=== PATIENT | male | born 1960 | race Caucasian/White ===

== ENCOUNTER → 2022-01-12 | Outpatient (CLI) | payer MEDICAID ==
[2022-01-12 15:02] LABS: Basophils # (A) 0.08 X 10*3/uL (0.00-0.10); Basophils % (A) 1.4 %; Eosinophils # (A) 0.12 X 10*3/uL (0.04-0.35); Eosinophils % (A) 2.1 %; HCT 44.3 % (39.6-50.0); HGB 14.8 g/dL (13.0-17.0); Immature Grans, Automated 0.3 %; Lymphocytes # (A) 1.42 X 10*3/uL (0.90-5.00); Lymphocytes % (A) 24.6 %; MCH 30.1 pg (27.0-32.0); MCHC 33.4 g/dL (32.0-37.0); MCV 90.2 fL (80.0-97.0); Mean Platelet Volume 10.7 fL (9.5-12.2); Monocytes % (A) 10.4 %; NRBC Per 100 WBC 0 /100 WBCS (0.0-0.0); Neutrophils # (A) 3.54 X 10*3/uL (1.80-7.70); Neutrophils % (A) 61.2 %; Platelet Count 325 X 10*3/uL (140-440); RBC 4.91 X 10*6/uL (4.40-5.60); RDW 13.1 % (11.5-14.5); WBC 5.78 X 10*3/uL (4.50-10.00)
[2022-01-12 15:12] LABS: African American GFR (CKD) 84.1 (60.0-200.0); Anion Gap 9.4 mmol/L (10.00-18.00); BUN/Creat Ratio 14.91 Ratio (12.00-20.00); Blood Urea Nitrogen 16.4 mg/dL (9.0-27.0); Calcium 9.7 mg/dL (8.7-10.3); Carbon Dioxide 28.6 mmol/L (20.0-27.5); Non-African American GFR(CKD) 72.6 (60.0-200.0); Potassium 5.1 mmol/L (3.5-5.5)
== END | disposition home or self-care (01) ==
LOC: LABPAT 08:53
PROVIDERS: ATTEND Urology
DX: Z01.812 Encounter for preprocedural laboratory examination (principal); N40.1 Benign prostatic hyperplasia with lower urinary tract symptoms
CPT/HCPCS: 36415; 80048; 85025

== ENCOUNTER 2022-01-19 08:19 | Day surgery (SDC) | payer MEDICAID ==
[2022-01-18 10:39] VITALS: BMI 22.9
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
[~2022-01-19 08:19] MED LIST: DEXAMETHASONE SOD PHOSPHATE 4 MG/ML 1 ML VIAL IV ONE; HYDROmorphone 0.5 MG/0.5 ML SYRINGE IVP PRN; ONDANSETRON 4 MG/2 ML VIAL IVP ONE
[2022-01-19] MEDS: LACTATED RINGERS 1,000 ML IV SCH (08:52)
[2022-01-19] MEDS ORDERED: DEXAMETHASONE SOD PHOSPHATE 4 MG/ML 1 ML VIAL IVP ONE (09:17)
[2022-01-19] MEDS ORDERED: ONDANSETRON 4 MG/2 ML VIAL IVP ONE (09:17)
[2022-01-19] MEDS ORDERED: fentaNYL (PF) 50 MCG/ML 2 ML AMP ONE (11:01)
[2022-01-19] MEDS ORDERED: SUCCINYLCHOLINE CHLORIDE 200 MG/10 ML VIAL IV ONE (11:01)
[2022-01-19] MEDS ORDERED: MIDAZOLAM 2 MG/2 ML VIAL ONE (11:01)
[2022-01-19] MEDS ORDERED: LIDOCAINE 2% INJ 20 MG/ML (2 ML VIAL) ONE (11:01)
[2022-01-19] MEDS ORDERED: PROPOFOL 10 MG/ML 20 ML VIAL IV ONE (11:01)
[2022-01-19] MEDS ORDERED: ePHEDrine 50 MG/ML 1 ML VIAL ONE (11:01)
[2022-01-19] MEDS ORDERED: NEOSTIGMINE 1 MG/ML 10 ML VIAL ONE (11:01)
[2022-01-19] MEDS ORDERED: GLYCOPYRROLATE 0.2 MG/ML 2 ML VIAL ONE (11:01)
[2022-01-19] MEDS ORDERED: ROCURONIUM 10 MG/ML (5 ML VIAL) IV ONE (11:01)
[2022-01-19] MEDS ORDERED: LACTATED RINGERS 1,000 ML IV ONE ×2 (11:41)
[2022-01-19] MEDS ORDERED: BELLADONNA-OPIUM 16.2-60 MG 1 EACH SUPP RECTAL PRN (14:52)
--- NOTE | 2022-01-19 14:58 | P.OP ---
Date of Procedure: 01/19/22 Preoperative Diagnosis: BPH with obstruction Postoperative Diagnosis: Same Procedure(s) Performed: Cystoscopy, bipolar transurethral resection of prostate (TURP) Anesthesia: KAMI Surgeon: Oni Lei Estimated Blood Loss (ml): 400 IV fluids (ml): 400 Pathology: other (Prostate chips) Condition: stable Disposition: PACU Indications for Procedure: The patient is a 61-year-old white male diagnosed with a UTI and urinary retention in November 2020. 2 L of urine was drained from his bladder at that time. He underwent a Urolift procedure in January 2021 but continues to empty his bladder incompletely. In view of this, he self catheterizes at bedtime. His PSA level is 4.47. He underwent a prostate ultrasound with biopsies. The prostate volume is 49.3 mL, and biopsies were negative. It is presumed that his elevated PSA level is due to BPH. In view of his persistent incomplete bladder emptying he has elected to undergo a TURP. Operative Findings: Trilobar BPH. Multiple Urolift implants seen and removed. Description of Procedure: The patient was taken in the operating room and placed in the dorsolithotomy position. The external genitalia was prepped and draped sterilely. The 25- Turkish ACMI resectoscope sheath was introduced into the bladder. The bladder was inspected. Both ureteral orifices were of normal anatomic location and configuration, and clear urine effluxed from both. No tumors or foreign bodies were seen. Examination of the prostate revealed complete obstruction with a trilobar configuration. Using the bipolar cutting loop, the median lobe was resected. Next, each of the lateral lobes were resected down to the surgical capsule. The floor of the prostate was then resected, proximal to the verumontanum. Next, the remaining anterior tissue was resected. The residual apical tissue was then carefully resected, with care taken to avoid injury to the external urinary sphincter. The resection was carried down to the surgical capsule in all 4 quadrants. The prostatic fossa was then carefully examined, and any areas of bleeding were controlled with electrocautery. An area of bleeding was present anteriorly on the left side, within the distal prostatic fossa which may have been a venous sinus. It was not an arterial bleeder, but it could not be adequately controlled with electrocautery. The resectoscope was withdrawn into the bulbous urethra. The external urinary sphincter remained intact. The prostatic fossa was open. The Ellik evacuator was used to remove all prostate chips from the bladder. These were saved and sent for pathologic examination. The resectoscope was removed, and a 20 Turkish, 3-Way Garcia catheter was placed. The catheter was placed on gentle traction, and the return was essentially clear. Continuous bladder irrigation was started using 0.9 normal saline. The patient tolerated the procedure well was taken to the recovery room in stable condition.
[2022-01-19] MEDS: SODIUM CHLORIDE 0.9% IRRIG 3,000 ML BAG IRRIGATION SCH (15:06)
[2022-01-19] MEDS: DEXTROSE 5%-0.45% NACL 1,000 ML IV SCH (17:10)
[2022-01-19] MEDS: ACETAMINOPHEN TAB 325 MG TAB PO PRN ×2 (17:42→22:26)
[2022-01-19] MEDS ORDERED: KETOROLAC 15 MG/ML 1 ML VIAL IVP PRN (18:17)
[2022-01-19] MEDS: DOCUSATE 100 MG CAP PO SCH (20:10)
[2022-01-20] MEDS: SODIUM CHLORIDE 0.9% IRRIG 3,000 ML BAG IRRIGATION SCH (03:19)
[2022-01-20] MEDS: ACETAMINOPHEN TAB 325 MG TAB PO PRN ×2 (05:07→13:05)
[2022-01-20] MEDS: DOCUSATE 100 MG CAP PO SCH (09:31)
--- NOTE | 2022-01-20 10:12 | P.DS ---
Providers Expected date of discharge: 01/20/22 Attending physician: Oni Lei Primary care physician: Blanca Szymanski - Discharge Diagnosis(es) (1) Benign prostatic hyperplasia with lower urinary tract symptoms Status: Acute Hospital Course: The patient is a 61-year-old white male diagnosed with a UTI and urinary retention in November 2020. 2L of urine was drained from his bladder at that time. He underwent a Urolift procedure in January 2021 but continues to empty his bladder incompletely. In view of this, he self catheterizes at bedtime. His PSA level is 4.47. He underwent a prostate ultrasound with biopsies. The prostate volume is 49.3 mL, and biopsies were negative. It is presumed that his elevated PSA level is due to BPH. In view of his persistent incomplete bladder emptying he elected to undergo a Cystoscopy and TURP with Dr. Lei on 01/13/22. An area of bleeding was present anteriorly on the left side, within the distal prostatic fossa which may have been a venous sinus. It was not an arterial bleeder, but it could not be adequately controlled with electrocautery.a 20 [place], 3-Way Garcia catheter was placed. The catheter was placed on gentle traction, and the return was essentially clear. Continuous bladder irrigation was started using 0.9 normal saline. The patient tolerated the procedure well was taken to the recovery room in stable condition. POD#1 his urine was clear. CBI discontined. No evidence of ongoing bleeding was observed. He states his pain is well controlled. His vitals are stable, he is afebrile and he is on room air. He has eaten breakfast and denies any nausea or vomiting. He has been up and ambulating. He was discharged home with his Garcia catheter and will follow up with Dr. Lei in the office on Sunday01/23/22. Impression and plan of care have been directed as dictated by the signing physician. Laurie Curtis nurse practitioner acting as scribe for signing physician. Laurie Curtis [facility] Palliative Care/Urology [place] [id number] Email: [email or web address] I have personally seen and examined the patient, reviewed the documentation and agree with the assessment and plan as written. Oni Lei MD Patient Condition at Discharge: Good Plan - Discharge Summary Discharge Rx Participant: No New Discharge Prescriptions: Continue Multivitamins, Thera [Multivitamin (formulary)] 1 tab PO DAILY Cholecalciferol (Vitamin D3) [Vitamin D3 (500 Iu/5 ML)] 12.5 mcg PO DAILY Ascorbic Acid [Vitamin C] 500 mg PO DAILY Discharge Medication List Ascorbic Acid [Vitamin C] 500 mg PO DAILY 01/18/22 [History] Cholecalciferol (Vitamin D3) [Vitamin D3 (500 Iu/5 ML)] 12.5 mcg PO DAILY 01/18/22 [History] Multivitamins, Thera [Multivitamin (formulary)] 1 tab PO DAILY 01/18/22 [History] Follow up Appointment(s)/Referral(s): Oni Lei MD [STAFF PHYSICIAN] - 01/23/22 8:40 am Patient Instructions/Handouts: Urinary Leg Bag (GEN), How to Change a Catheter Drainage Bag (DC) Activity/Diet/Wound Care/Special Instructions: - No heavy lifting, straining, or strenuous activity - May take an [id number] stool softener, such as Colace, to prevent con stipation and straining with bowel movements - Take Tylenol as needed for pain/discomfort - You may shower, no tub baths - It is normal to have blood in your urine - Increase your fluid intake - Follow up with Dr. Lei in the office on Tuesday 01/23 at 8:40 AM for Garcia catheter removal Discharge Disposition: HOME SELF-CARE
[2022-01-20] MEDS: DEXTROSE 5%-0.45% NACL 1,000 ML IV SCH (13:08)
[2022-01-20] MEDS: LACTATED RINGERS 1,000 ML IV SCH (13:09)
[2022-01-20 13:39] VITALS: BP 114/68; PULSE 66; RESP 18; TEMP 97.8
== END 2022-01-20 15:09 | disposition home or self-care (01) ==
LOC: OR 08:19 → 4SSUR 14:23 → OR 01-20 15:09
PROVIDERS: ATTEND Urology
DX: N40.1 Benign prostatic hyperplasia with lower urinary tract symptoms (principal); N13.8 Other obstructive and reflux uropathy; Z90.49 Acquired absence of other specified parts of digestive tract; Z80.9 Family history of malignant neoplasm, unspecified; Z79.899 Other long term (current) drug therapy; Z88.2 Allergy status to sulfonamides; Z88.1 Allergy status to other antibiotic agents
CPT/HCPCS: 52601; J2250; J0330; J1100; J2710; J0690; J2405; J3010; J2704; J2001; 88305